=== PATIENT | female | born 1965 | race African-American/Black ===

== ENCOUNTER 2016-08-11 20:26 | Emergency (ER) | payer SELFPAY ==
[2016-08-11 20:35] VITALS: BP 119/73; PULSE 75; BMI 23.3
== END 2016-08-12 00:38 | disposition left against medical advice (07) ==
LOC: JER 20:26
DX: Z53.21 Procedure and treatment not carried out due to patient leaving prior to being seen by health care provider (principal)
CPT/HCPCS: 99281-25